=== PATIENT | female | born 1955 | race American Indian/Alaskan Native ===

== ENCOUNTER 2024-02-12 10:45 | Emergency (ER) | payer OTHER ==
[~2024-02-12] VITALS: Ht 180.3 cm; Wt 105.5 kg
[2024-02-12 11:32] VITALS: BP 172/87; PULSE 98; RESP 16; TEMP 97.6; O2SAT 95
[2024-02-12] MEDS ORDERED: ACET-1080 PO (12:45)
[2024-02-12] MEDS ORDERED: CEPH500C PO (12:45)
[2024-02-12] MEDS: ACETAMINOPHEN 500 MG TAB PO ONE (12:59)
== END 2024-02-12 13:01 | disposition home or self-care (01) ==
LOC: ER 10:45
DX: S00.83XA Contusion of other part of head, initial encounter (principal); S60.222A Contusion of left hand, initial encounter; S60.221A Contusion of right hand, initial encounter; S80.212A Abrasion, left knee, initial encounter; W01.198A Fall on same level from slipping, tripping and stumbling with subsequent striking against other object, initial encounter; Y93.89 Activity, other specified; Y92.89 Other specified places as the place of occurrence of the external cause; Y99.8 Other external cause status
CPT/HCPCS: 70450; 73130